=== PATIENT | female | born 1965 ===

== ENCOUNTER 2018-04-25 15:20 | Emergency (ER) | payer MEDICAID ==
[2018-04-25] MEDS ORDERED: Alum-Mag Hydrox-Simethicone Susp (30 mL) PO STA (16:34)
[2018-04-25] MEDS ORDERED: Sodium Chloride 0.9% 1,000 ML IV STA (16:34)
--- NOTE | 2018-04-25 16:43 | C.PDOC ---
History Of Present Illness 53 year old female, with Hx of gastritis, presents to the ED complaining of abdominal pain for one week and lower back pain for the past three days. The patient states the pain from her back radiates down to her legs. She reports fracisco ing Naproxen two days ago with slight relief of her symptoms. The patient also admits to experiencing dysuria, frequency and nausea. She denies any vomiting, constipation, recent injury/trauma, or fever. Time Seen by Provider: 04/25/18 16:00 Chief Complaint (Nursing): Abdominal Pain History Per: Patient History/Exam Limitations: no limitations Onset/Duration Of Symptoms: Days Current Symptoms Are (Timing): Still Present Location Of Pain/Discomfort: Epigastric Radiation Of Pain To:: Back, Leg Quality Of Discomfort: Aching Associated Symptoms: Nausea, Urinary Symptoms. denies: Fever, Vomiting, Constipation Last Bowel Movement: Today (this morning) Recent travel outside of the [place]: No Past Medical History Reviewed: Historical Data, Nursing Documentation, Vital Signs Vital Signs: Last Vital Signs Temp 98.3 F 04/25/18 15:26 Pulse 72 04/25/18 15:26 Resp 20 04/25/18 15:26 BP 154/80 H 04/25/18 15:26 Pulse Ox 96 04/25/18 15:26 - Medical History PMH: Anxiety, Asthma, Depression, Hypercholesterolemia Surgical History: Cholecystectomy, Family History: States: Unknown Family Hx - Social History Hx Alcohol Use: Yes Hx Substance Use: Yes (17 yras ago) - Immunization History Hx Tetanus Toxoid Vaccination: No Hx Influenza Vaccination: No Hx Pneumococcal Vaccination: No Review Of Systems Except As Marked, All Systems Reviewed And Found Negative. Constitutional: Negative for: Fever Gastrointestinal: Positive for: Nausea, Abdominal Pain. Negative for: Vomiting, Diarrhea, Constipation Genitourinary: Positive for: Dysuria, Frequency Musculoskeletal: Positive for: Back Pain, Leg Pain Physical Exam - Physical Exam Additional Physical Exam Comments: Constitutional: No acute distress. Head: Normocephalic. Atraumatic. Eyes: PERRL. ENT: Moist mucous membranes. Neck: Supple. Cardiovascular: Regular rate. Radial pulse 2+ bilaterally. Chest: No tenderness. Respiratory: Clear to auscultation bilaterally. GI: Soft. Epigastric tenderness. Nondistended. Back: No CVA tenderness. Musculoskeletal: No tenderness or swelling of extremities. Skin: No rash. Neurologic: Alert, no focal deficit. ED Course And Treatment - Laboratory Results Result Diagrams: 04/25/18 16:42 04/25/18 16:42 O2 Sat by Pulse Oximetry: 96 (RA) Pulse Ox Interpretation: Normal Medical Decision Making Medical Decision Making: EKG NSR 62 bpm, no ST/T wave changes. Impression: 53 year old female, with Hx of gastritis, presents to the ED complaining of stomach pain for one week and lower back pain for the past three days Plan: -EKG -CMP -Lipase -CBC -Urine Culture -UA -IV Fluids -Zofran Inj -Pepcid 20 mg IV -Maaloz Plus 30 ml UA positive for UTI. Prescribed antibiotics, f/u PMD, return to ED for worsening pain, fever, dyspnea, vomiting. Disposition - Disposition Referrals: June Gayle MD [Staff Provider] - Disposition: HOME/ ROUTINE Disposition Time: 17:37 Condition: STABLE Prescriptions: Ciprofloxacin [Cipro] 500 mg PO BID #14 tab Instructions: Urinary Tract Infections in Adults Forms: [facility] (Occitan) - Clinical Impression Clinical Impression: UTI (urinary tract infection) - PA / ANSWERING SERVICE AGENT / Resident Statement MD/DO has reviewed & agrees with the documentation as recorded. - Scribe Statement The provider has reviewed the documentation as recorded by the Scribe (Cristina Soni) Provider Attestation: All medical record entries made by the Scribe were at my direction and personally dictated by me. I have reviewed the chart and agree that the record accurately reflects my personal performance of the history, physical exam, medical decision making, and the department course for this patient. I have also personally directed, reviewed, and agree with the discharge instructions and disposition.
[2018-04-25 16:46] LABS: BASO # 0.1 K/uL (0.0-0.2); BASO % 0.9 % (0.0-2.0); EOS # 0.2 K/uL (0.0-0.7); EOS % 2.1 % (0.0-4.0); HEMOGLOBIN 12.1 g/dL (11.0-16.0); LYMPH # 1.4 K/uL (1.0-4.3); LYMPH % 18.2 % (20.0-40.0); MEAN CELL VOLUME 85.3 fL (81.0-99.0); MEAN CORPUSCULAR HEMOGLOBIN 27.3 pg (27.0-31.0); MEAN PLATELET VOLUME 9.5 fL (7.2-11.7); MONO # 0.4 K/uL (0.0-0.8); MONO % 5.4 % (0.0-10.0); NEUT # 5.6 K/uL (1.8-7.0); NEUT % 73.4 % (50.0-75.0); RBC 4.42 Mil/uL (3.80-5.20); RED CELL DISTRIBUTION WIDTH 14.3 % (11.5-14.5); WHITE BLOOD COUNT 7.7 K/uL (4.8-10.8)
[2018-04-25 16:53] LABS: SQUAMOUS EPITHIAL 4 /hpf (0-5); URINE BACTERIA RARE (<OCC); URINE BILIRUBIN NEGATIVE (NEGATIVE); URINE BLOOD NEGATIVE (NEGATIVE); URINE CLARITY Hazy (Clear); URINE COLOR Yellow (YELLOW); URINE GLUCOSE (UA) NORMAL (Normal); URINE LEUKOCYTE ESTERASE 1+ Leu/uL (Negative); URINE PROTEIN NEGATIVE (NEGATIVE); URINE UROBILINOGEN NORMAL mg/dL (0.2-1.0)
[2018-04-25 17:00] LABS: ALB/GLOB RATIO 1.4 (1.0-2.1); ALBUMIN 4.3 g/dL (3.5-5.0); ALT/SGPT 39 U/L (9-52); AST/SGOT 29 U/L (14-36); BLOOD UREA NITROGEN 11 mg/dL (7-17); CALCIUM 9.8 mg/dl (8.6-10.4); GFR NON-AFRICAN AMERICAN > 60; LIPASE 35 U/L (23-300)
[2018-04-25] MEDS ORDERED: Alum-Mag Hydrox-Simethicone Susp (30 mL) ONE (17:03)
[2018-04-25] MEDS ORDERED: Sodium Chloride 0.9% 1,000 ML ONE (17:03)
[2018-04-25 17:48] VITALS: BP 98/61; PULSE 59; RESP 19; TEMP 98.4; O2SAT 95
--- NOTE | 2018-04-28 19:34 | CARD ---
APPROVED REPORT Date of service: 04/25/2018 EKG Measurement Heart [id number] CO [id number] <Conclusion> Normal sinus rhythm Normal ECG
== END 2018-04-25 17:47 | disposition home or self-care (01) ==
LOC: C.ER 15:20
DX: N39.0 Urinary tract infection, site not specified (principal)
CPT/HCPCS: 80053; 81001; 83690; 85025; 87086; 93005; 96361; 96374; 96375; 99285; J2405; J7030

== ENCOUNTER 2018-09-23 15:22 | Emergency (ER) | payer MEDICAID ==
[2018-09-23 15:34] VITALS: BP 133/84; RESP 18; O2SAT 96
--- NOTE | 2018-09-23 17:08 | C.PDOC ---
History Of Present Illness 53 y/o female with asthma c/o right lower back pain for a few days, also c/o urinary frequency for weeks, denies dysira and hematuria. no ab pain, n/v/d. Time Seen by Provider: 09/23/18 15:56 Chief Complaint (Nursing): Back Pain History Per: Patient History/Exam Limitations: no limitations Onset/Duration Of Symptoms: Days Current Symptoms Are (Timing): Still Present Severity: Moderate Past Medical History Vital Signs: Last Vital Signs Temp 97.8 F 09/23/18 15:31 Pulse 63 09/23/18 15:31 Resp 18 09/23/18 15:31 BP 133/84 09/23/18 15:31 Pulse Ox 96 09/23/18 15:31 - Medical History PMH: Anxiety, Asthma, Depression, Hypercholesterolemia Surgical History: Cholecystectomy, Family History: States: No Known Family Hx - Social History Hx Alcohol Use: Yes Hx Substance Use: Yes (17 yras ago) - Immunization History Hx Tetanus Toxoid Vaccination: No Hx Influenza Vaccination: No Hx Pneumococcal Vaccination: No Review Of Systems Gastrointestinal: Negative for: Nausea, Vomiting, Abdominal Pain, Diarrhea Genitourinary: Positive for: Frequency. Negative for: Dysuria, Hematuria Musculoskeletal: Positive for: Back Pain Physical Exam - Physical Exam Appears: Non-toxic, No Acute Distress Skin: Warm, Dry Head: Atraumatic, Normacephalic Eye(s): bilateral: Normal Inspection Nose: Normal Oral Mucosa: Moist Neck: Supple Chest: Symmetrical Cardiovascular: Rhythm Regular Respiratory: No Rales, No Rhonchi, No Wheezing Gastrointestinal/Abdominal: Soft, No Tenderness, No Guarding, No Rebound Back: No CVA Tenderness, Paraspinal Tenderness (right sided lumbar paraspinal tenderness) Extremity: Normal ROM, No Tenderness, No Calf Tenderness, Swelling (minimal swelling to right posterior ankle), Other (1+ bilateral pitting edema) Neurological/Psych: Oriented x3, Normal Speech ED Course And Treatment O2 Sat by Pulse Oximetry: 96 (RA) Pulse Ox Interpretation: Normal Medical Decision Making Medical Decision Making: Plan: --Toradol IM --Lidoderm Patch Updates: On re-evaluation, patient states that she feels better. ua neg for infections. d/c home., pmd. f/u Disposition Counseled Patient/Family Regarding: Studies Performed, Diagnosis, Need For Followup, Rx Given - Disposition Referrals: June Gayle MD [Staff Provider] - Disposition: HOME/ ROUTINE Disposition Time: 18:27 Condition: IMPROVED Additional Instructions: Take patch off in 12 hours. Take ibuprofen as prescribed. Take with food. Avoid heavy lifting. Follow u with Dr Gayle in 1-2 days. Return to ER for any worse symptoms. Prescriptions: Ibuprofen [Motrin] 600 mg PO TID #30 tab Instructions: Low Back Pain (DC) Forms: [facility] (Yoruba), General Discharge Instructions - Clinical Impression Clinical Impression: Low back pain - PA / GEOGRAPHY INSTRUCTOR / Resident Statement MD/DO has reviewed & agrees with the documentation as recorded. - Scribe Statement The provider has reviewed the documentation as recorded by the Janneth Jackson Provider Attestation All medical record entries made by the Crisibcayetano were at my direction and personally dictated by me. I have reviewed the chart and agree that the record accurately reflects my personal performance of the history, physical exam, medical decision making, and the department course for this patient. I have also personally directed, reviewed, and agree with the discharge instructions and disposition.
[2018-09-23 17:56] LABS: SQUAMOUS EPITHIAL 2 /hpf (0-5); URINE BILIRUBIN NEGATIVE (NEGATIVE); URINE BLOOD 1+ (NEGATIVE); URINE CLARITY Hazy (Clear); URINE COLOR Straw (YELLOW); URINE GLUCOSE (UA) NORMAL (Normal); URINE LEUKOCYTE ESTERASE TRACE Leu/uL (Negative); URINE PROTEIN NEGATIVE (NEGATIVE); URINE UROBILINOGEN NORMAL mg/dL (0.2-1.0)
[2018-09-23] MEDS ORDERED: Lidocaine 5% Patch TD STA (18:07)
[2018-09-23] MEDS ORDERED: Lidocaine 5% Patch TD ONE (18:27)
[2018-09-23 18:49] VITALS: PULSE 77; TEMP 98.1
== END 2018-09-23 18:49 | disposition home or self-care (01) ==
LOC: C.ER 15:22
DX: M54.5 Low back pain (principal); E78.00 Pure hypercholesterolemia, unspecified
CPT/HCPCS: 81001; 87086; 96372; 99283; J1885